=== PATIENT | female | born 1990 | race African-American/Black ===

== ENCOUNTER 2017-04-21 21:53 | Emergency (ER) | payer OTHER ==
[~2017-04-21] VITALS: Ht 182.9 cm; Wt 99.8 kg
[2017-04-21 22:02] VITALS: BP 157/94
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
== END 2017-04-21 22:24 | disposition home or self-care (01) ==
LOC: ER 21:53
DX: S09.90XA Unspecified injury of head, initial encounter (principal); Y04.0XXA Assault by unarmed brawl or fight, initial encounter; Y93.89 Activity, other specified; Y92.89 Other specified places as the place of occurrence of the external cause; Y99.8 Other external cause status
CPT/HCPCS: 99281